=== PATIENT | female | born 1980 | race Two or more races ===

== ENCOUNTER 2019-09-04 20:59 | Emergency (ER) | payer SELFPAY ==
[~2019-09-04] VITALS: Ht 165.1 cm; Wt 78.9 kg
--- NOTE | 2019-09-04 21:15 | NUR ---
TO ER BED 14 AMBULATORY C/O COUGH AND CONGESTION X6 DAYS, SOB SINCE LAST NIGHT. PT AAOX4 NO ACUTE DISTRESS NOTED, RESP EVEN AND UNLABORED. PT DENIES PAIN OR DISCOMFORT AT THIS TIME. URINE SAMPLE COLLECTED. PENDING ER MD COLMENARES.
[2019-09-04] MEDS ORDERED: predniSONE 20 MG TABLET PO ONE (22:00)
[2019-09-04] MEDS ORDERED: IBUPROFEN 600 MG TABLET PO ONE ×2 (22:00→22:03)
[2019-09-04] MEDS ORDERED: IPRATROPIUM NEB FS 0.5 MG/2.5 ML AMPUL.NEB NEB ONE (22:00)
[2019-09-04] MEDS ORDERED: ALBUTEROL FS 2.5 MG/3 ML VIAL.NEB NEB ONE (22:00)
[2019-09-04] MEDS ORDERED: predniSONE 20 MG TABLET ONE (22:04)
[2019-09-04] MEDS ORDERED: IPRATROPIUM NEB FS 0.5 MG/2.5 ML AMPUL.NEB ONE (22:06)
[2019-09-04] MEDS ORDERED: ALBUTEROL FS 2.5 MG/3 ML VIAL.NEB ONE (22:06)
--- NOTE | 2019-09-04 22:07 | NUR ---
PT MEDICATED ORDERED. RT AT BEDSIDE TO GIVE HHN TX.
[2019-09-04 23:28] VITALS: BP 127/75
--- NOTE | 2019-09-04 23:28 | NUR ---
Patient discharged to home in stable condition. Written and verbal after care instructions given. Patient verbalizes understanding of instruction. ambulatory with a steady gait noted. pt aaox4 no acute distress noted, resp even and unlabored.
== END 2019-09-04 23:29 | disposition home or self-care (01) ==
LOC: ER 21:05
DX: J20.9 Acute bronchitis, unspecified (principal); M79.644 Pain in right finger(s)
CPT/HCPCS: 29130; 71045; 73140; 94644; 99285; J7512

== ENCOUNTER 2021-01-20 22:16 | Emergency (ER) | payer SELFPAY ==
[~2021-01-20] VITALS: Ht 165.1 cm; Wt 72.6 kg
[2021-01-20] MEDS ORDERED: diphenhydrAMINE HCL 25 MG CAPSULE PO ONE (23:30)
[2021-01-20] MEDS ORDERED: EPINEPHRINE (1:1000) MDV 30 MG/30ML VIAL SUBCUT ONE (23:30)
[2021-01-20] MEDS ORDERED: HYDROCODONE/APAP 5/325MG TABLET PO ONE (23:30)
[2021-01-20] MEDS ORDERED: ONDANSETRON 4 MG TAB.RAPDIS SL ONE (23:30)
[2021-01-20] MEDS ORDERED: predniSONE 50 MG TABLET PO ONE (23:30)
[2021-01-20] MEDS ORDERED: EPINEPHRINE (1:1000) 1 MG/ML AMPUL ONE (23:40)
[2021-01-20] MEDS ORDERED: predniSONE 10 MG TABLET ONE (23:41)
[2021-01-20] MEDS ORDERED: HYDROCODONE/APAP 5/325MG TABLET ONE (23:41)
[2021-01-20] MEDS ORDERED: diphenhydrAMINE HCL 50 MG CAPSULE ONE (23:41)
[2021-01-20] MEDS ORDERED: predniSONE 20 MG TABLET ONE (23:41)
[2021-01-20] MEDS ORDERED: ONDANSETRON 4 MG TAB.RAPDIS ONE (23:41)
[2021-01-20 23:53] VITALS: BP 134/84
[2021-01-21] MEDS ORDERED: ONDA4TAB11 PO (00:44)
[2021-01-21] MEDS ORDERED: HYDR-4303 PO (00:44)
[2021-01-21] MEDS ORDERED: LORA10TA68 PO (00:44)
[2021-01-21] MEDS ORDERED: AZIT250T PO (00:44)
[2021-01-21] MEDS ORDERED: PRED20TA PO (00:44)
--- NOTE | 2021-01-21 01:25 | NUR ---
Patient discharged to home in stable condition. Written and verbal after care instructions given. Patient verbalizes understanding of instruction and RX. Pt ambulated out of ED. VSS.
== END 2021-01-21 01:34 | disposition home or self-care (01) ==
LOC: ER 22:16
DX: J02.9 Acute pharyngitis, unspecified (principal); T78.3XXA Angioneurotic edema, initial encounter; T36.0X5A Adverse effect of penicillins, initial encounter; Y92.019 Unspecified place in single-family (private) house as the place of occurrence of the external cause; R53.1 Weakness; Z20.822 Contact with and (suspected) exposure to COVID-19
CPT/HCPCS: 87070; 87426; 87880; 96372; 99284; C9803; J0171; J7512 ×2; Q0162; Q0163; 86403-TC

== ENCOUNTER 2021-01-31 19:45 | Emergency (ER) | payer MEDICAID ==
[~2021-01-31] VITALS: Ht 165.1 cm; Wt 68.0 kg
[2021-01-31 19:45] VITALS: BP 156/100
[~2021-01-31 19:45] MED LIST: AZIT250T PO; HYDR-4303 PO; LORA10TA68 PO; ONDA4TAB11 PO; PRED20TA PO
[2021-01-31] MEDS ORDERED: DOXY100C41 PO (20:36)
== END 2021-01-31 20:43 | disposition home or self-care (01) ==
LOC: ER 19:45
DX: H66.92 Otitis media, unspecified, left ear (principal); Z88.1 Allergy status to other antibiotic agents; Z79.899 Other long term (current) drug therapy

== ENCOUNTER 2021-05-11 00:03 | Emergency (ER) | payer MEDICAID ==
[~2021-05-11] VITALS: Ht 165.1 cm; Wt 69.9 kg
[~2021-05-11 00:03] MED LIST changes: +DOXY-326 PO
--- NOTE | 2021-05-11 00:18 | NUR ---
urine sample sent to lab
[2021-05-11 00:30] LABS: BILIRUBIN,URINE Negative (NEGATIVE); COLOR,URINE LIGHT YELLOW (YELLOW); LEUKOCYTE ESTERASE ,URINE Negative (NEGATIVE); NITRITE, URINE Negative (NEGATIVE); PH,URINE 7.5 (5.0-8.0); PROTEIN,URINE Negative (NEGATIVE); UGLUCOSE Negative (NEGATIVE)
--- NOTE | 2021-05-11 00:56 | NUR ---
US AT BEDSIDE
--- NOTE | 2021-05-11 01:21 | NUR ---
ULTRASOUND PROCEDURE FINISHED
--- NOTE | 2021-05-11 03:21 | NUR ---
CALLED BELLA FOR FOLLOW UP, WILL BE READ.
--- NOTE | 2021-05-11 03:24 | NUR ---
called Ammy for US read
[2021-05-11] MEDS ORDERED: METO-295 PO (04:14)
--- NOTE | 2021-05-11 04:39 | NUR ---
Patient discharged to home in stable condition. Written and verbal after care instructions given. Patient verbalizes understanding of instruction.
[2021-05-11 04:40] VITALS: BP 130/70
== END 2021-05-11 04:40 | disposition home or self-care (01) ==
LOC: ER 00:04
DX: O26.891 Other specified pregnancy related conditions, first trimester (principal); R10.30 Lower abdominal pain, unspecified; Z88.1 Allergy status to other antibiotic agents; Z79.899 Other long term (current) drug therapy; Z3A.01 Less than 8 weeks gestation of pregnancy
CPT/HCPCS: 36415; 76805-TC; 84702-TC

== ENCOUNTER 2022-03-09 21:15 | Emergency (ER) | payer MEDICAID ==
[~2022-03-09] VITALS: Ht 165.1 cm; Wt 72.6 kg
[~2022-03-09 21:15] MED LIST changes: +METO-295 PO
--- NOTE | 2022-03-09 21:50 | NUR ---
TO ER BED 17. BIBS C/O ABDOMINAL PAIN X 2 DAYS AND POSITIVE TEST TODAY. TOOK IBUPROFEN WITH LITTLE RELIEF. PT STATES "LMP JUL 2021 AND POSITIVE TEST AUG " "THOUGHT SHE HAD MISCARRIAGE IN 2020 BECAUSE SHE HAD VAGINAL BLEEDING". CHANGED INTO GOWN. CONNECTED TO MONITOR. AWAITING MD COLMENARES
--- NOTE | 2022-03-09 21:57 | NUR ---
URINE COLLECTED AND SENT TO LAB
[2022-03-09 22:39] LABS: BILIRUBIN,URINE NEGATIVE (NEGATIVE); COLOR,URINE YELLOW (YELLOW); LEUKOCYTE ESTERASE ,URINE NEGATIVE (NEGATIVE); NITRITE, URINE NEGATIVE (NEGATIVE); PROTEIN,URINE NEGATIVE (NEGATIVE); UGLUCOSE NEGATIVE (NEGATIVE); UROBILINOGEN,URINE 0.2 EU/dL (0.2)
--- NOTE | 2022-03-09 22:42 | NUR ---
LAB AT BEDSIDE
[2022-03-09 23:14] LABS: BASOPHILS % (AUTO) 0.3 % (0.0-2.0); EOSINOPHILS % (AUTO) 1.7 % (0.0-6.0); HEMATOCRIT 34 % (33-45); HEMOGLOBIN 11.6 g/dL (11.5-14.8); LYMPHOCYTES % (AUTO) 22.7 % (20.0-44.0); MEAN CORPUSCULAR HGB CONC 34 g/dl (31.0-36.0); MEAN CORPUSCULAR VOLUME 87 fL (82-100); MONOCYTES # (AUTO) 0.6 K/uL (0.1-1.30); MONOCYTES % (AUTO) 6.4 % (2.0-12.0); NEUTROPHILS # (AUTO) 6.1 K/uL (1.8-8.9); NEUTROPHILS % (AUTO) 68.9 % (43.0-81.0); PLATELET COUNT (AUTO) 298 K/uL (150-450); RED BLOOD CELL COUNT(AUTO) 3.91 MIL/uL (4.0-5.2); WHITE BLOOD COUNT (AUTO) 8.9 K/uL (4.3-11.0)
[2022-03-09 23:26] LABS: CALCIUM, SERUM 8.5 mg/dL (8.5-10.1); CREATININE 0.6 mg/dL (0.6-1.3); POTASSIUM 3.9 mmol/L (3.5-5.1)
[2022-03-09 23:47] VITALS: BP 136/90
--- NOTE | 2022-03-09 23:47 | NUR ---
Giuseppe joseph in [facility] - 03/09/22 at 2350 by LIAN Patient discharged to home in stable condition. Written and verbal after care instructions given. Patient verbalizes understanding of instruction.
[2022-03-09 23:52] LABS: ALBUMIN 2.9 g/dL (3.4-5.0); BILIRUBIN,DIRECT 0.1 mg/dL (0.0-0.2); BILIRUBIN,TOTAL 0.2 mg/dL (0.2-1.0); TOTAL PROTEIN, SERUM 7.1 g/dL (6.4-8.2)
--- NOTE | 2022-03-10 00:10 | NUR ---
Patient discharged to home in stable condition. Written and verbal after care instructions given. Patient verbalizes understanding of instruction.
== END 2022-03-10 00:57 | disposition home or self-care (01) ==
LOC: ER 21:22
DX: O26.892 Other specified pregnancy related conditions, second trimester (principal); R10.84 Generalized abdominal pain; Z88.8 Allergy status to other drugs, medicaments and biological substances; Z79.899 Other long term (current) drug therapy
CPT/HCPCS: 36415; 76805-TC; 80048-TC; 80076-TC; 84702-TC; 85025-TC

== ENCOUNTER 2022-07-20 17:21 | Emergency (ER) | payer MEDICAID ==
[~2022-07-20] VITALS: Ht 165.1 cm; Wt 77.6 kg
--- NOTE | 2022-07-20 17:34 | NUR ---
came in for heavy vaginal bleeding, pain to lower abdomen since 1400 yesterday recently gave caesarian section 06/16/22, to ER ed 16, hooked to monitor, changed to hosp gown, warm blanket provided, patient [id number]. breathing even and unlabored, patient with 1 month old baby boy. awaiting MD pierre
--- NOTE | 2022-07-20 17:36 | NUR ---
marian [employer]CHITECT at bedside
--- NOTE | 2022-07-20 18:59 | NUR ---
PATIENT NOT ABLE TO PROVIDE URINE SAMPLE AT THIS TIME, CHINYERE FORREST MADE AWARE
[2022-07-20 19:27] LABS: CALCIUM, SERUM 8.7 mg/dL (8.5-10.1); CREATININE 0.7 mg/dL (0.6-1.3); POTASSIUM 3.9 mmol/L (3.5-5.1)
[2022-07-20 19:34] LABS: ALBUMIN 3.6 g/dL (3.4-5.0); BILIRUBIN,DIRECT 0.1 mg/dL (0.0-0.2); BILIRUBIN,TOTAL 0.4 mg/dL (0.2-1.0); TOTAL PROTEIN, SERUM 7.9 g/dL (6.4-8.2)
[2022-07-20 19:56] LABS: BASOPHILS % (AUTO) 0.5 % (0.0-2.0); EOSINOPHILS % (AUTO) 2.3 % (0.0-6.0); HEMATOCRIT 36 % (33-45); HEMOGLOBIN 11.7 g/dL (11.5-14.8); LYMPHOCYTES # (AUTO) 1.7 K/uL (0.8-4.8); LYMPHOCYTES % (AUTO) 20.1 % (20.0-44.0); MEAN CORPUSCULAR HGB CONC 32 g/dl (31.0-36.0); MEAN CORPUSCULAR VOLUME 84 fL (82-100); MONOCYTES # (AUTO) 0.5 K/uL (0.1-1.30); MONOCYTES % (AUTO) 5.7 % (2.0-12.0); NEUTROPHILS # (AUTO) 5.9 K/uL (1.8-8.9); NEUTROPHILS % (AUTO) 71.4 % (43.0-81.0); PLATELET COUNT (AUTO) 279 K/uL (150-450); RED BLOOD CELL COUNT(AUTO) 4.27 MIL/uL (4.0-5.2); WHITE BLOOD COUNT (AUTO) 8.2 K/uL (4.3-11.0)
[2022-07-20 19:58] LABS: BILIRUBIN,URINE SMALL (NEGATIVE); COLOR,URINE YELLOW (YELLOW); LEUKOCYTE ESTERASE ,URINE TRACE (NEGATIVE); NITRITE, URINE NEGATIVE (NEGATIVE); PH,URINE 5.5 (5.0-8.0); PROTEIN,URINE 30 mg/dl (NEGATIVE); UGLUCOSE NEGATIVE (NEGATIVE)
[2022-07-20 20:07] LABS: BACTERIA,URINE 1+ /HPF (None Seen); RBC,URINE TOO NUMEROUS TO COUN /HPF (0-2); SQUAMOUS EPITHELIAL CELL,UR 0-2 /HPF (None Seen)
[2022-07-20] MEDS ORDERED: NITR100C6 PO ×2 (20:26→20:42)
[2022-07-20 20:49] VITALS: BP 145/90
--- NOTE | 2022-07-20 20:49 | NUR ---
Patient discharged to home in stable condition. Written and verbal after care instructions given. Patient verbalizes understanding of instruction.
--- NOTE | 2022-07-20 20:59 | NUR ---
Patient discharged to home in stable condition. Written and verbal after care instructions given. Patient verbalizes understanding of instruction.
== END 2022-07-20 21:47 | disposition home or self-care (01) ==
LOC: ER 17:26
DX: D21.9 Benign neoplasm of connective and other soft tissue, unspecified (principal); N93.9 Abnormal uterine and vaginal bleeding, unspecified; N39.0 Urinary tract infection, site not specified; Z88.0 Allergy status to penicillin; Z88.8 Allergy status to other drugs, medicaments and biological substances; Z79.899 Other long term (current) drug therapy
CPT/HCPCS: 36415; 76856-TC; 80048-TC; 80076-TC; 81001; 83690-TC; 84703-TC; 85025-TC; 85730-TC

== ENCOUNTER 2022-12-29 00:33 | Emergency (ER) | payer MEDICAID ==
[~2022-12-29] VITALS: Ht 165.1 cm; Wt 69.9 kg
[~2022-12-29 00:33] MED LIST changes: +NITR100C6 PO
--- NOTE | 2022-12-29 01:13 | NUR ---
BIBS FOR C/O ABD PAIN RADIAITNG TO R UPPER BACK, -N/V, +DIARRHEA
[2022-12-29 02:14] LABS: ALBUMIN 3.9 g/dL (3.4-5.0); BILIRUBIN,TOTAL 0.3 mg/dL (0.2-1.0); CALCIUM, SERUM 8.6 mg/dL (8.5-10.1); CREATININE 0.6 mg/dL (0.6-1.3); POTASSIUM 3.5 mmol/L (3.5-5.1); TOTAL PROTEIN, SERUM 7.5 g/dL (6.4-8.2)
[2022-12-29 02:15] LABS: BILIRUBIN,URINE NEGATIVE (NEGATIVE); COLOR,URINE YELLOW (YELLOW); LEUKOCYTE ESTERASE ,URINE NEGATIVE (NEGATIVE); NITRITE, URINE NEGATIVE (NEGATIVE); PROTEIN,URINE NEGATIVE (NEGATIVE); UGLUCOSE NEGATIVE (NEGATIVE); UROBILINOGEN,URINE 0.2 EU/dL (0.2)
[2022-12-29 02:23] LABS: BASOPHILS # (AUTO) 0.1 K/uL (0.0-0.2); BASOPHILS % (AUTO) 0.7 % (0.0-2.0); EOSINOPHILS % (AUTO) 2.9 % (0.0-6.0); HEMATOCRIT 38 % (33-45); HEMOGLOBIN 12.9 g/dL (11.5-14.8); LYMPHOCYTES # (AUTO) 3.6 K/uL (0.8-4.8); LYMPHOCYTES % (AUTO) 44.3 % (20.0-44.0); MEAN CORPUSCULAR HGB CONC 34 g/dl (31.0-36.0); MEAN CORPUSCULAR VOLUME 84 fL (82-100); MONOCYTES # (AUTO) 0.6 K/uL (0.1-1.30); MONOCYTES % (AUTO) 6.9 % (2.0-12.0); NEUTROPHILS # (AUTO) 3.6 K/uL (1.8-8.9); NEUTROPHILS % (AUTO) 45.2 % (43.0-81.0); PLATELET COUNT (AUTO) 288 K/uL (150-450); RED BLOOD CELL COUNT(AUTO) 4.54 MIL/uL (4.0-5.2)
--- NOTE | 2022-12-29 05:35 | NUR ---
Pt ok to discharge home per Dr Price. Patient discharged to home in stable condition. Written and verbal after care instructions given. Patient verbalizes understanding of instruction.Patient is awake and alert to self, day, and place. Pt ambulatory with a steady gait.
[2022-12-29 05:36] VITALS: BP 129/88
== END 2022-12-29 05:36 | disposition home or self-care (01) ==
LOC: ER 00:34
DX: K42.9 Umbilical hernia without obstruction or gangrene (principal); Z79.899 Other long term (current) drug therapy; Z88.0 Allergy status to penicillin; Z88.1 Allergy status to other antibiotic agents; Z88.8 Allergy status to other drugs, medicaments and biological substances
CPT/HCPCS: 36415; 80053-TC; 83690-TC; 84703-TC; 85025-TC